=== PATIENT | male | born 1955 | race Caucasian/White ===

== ENCOUNTER 2017-12-01 10:34 | Inpatient (IN) | payer MEDICARE, OTHER ==
[2017-12-01] MEDS: SOD CHLORIDE 0.9% 1,000 ML IV (12:37)
[2017-12-01] MEDS: ONDANSETRON 4 MG INJ IV ×2 (12:37→14:16)
[2017-12-01] MEDS: HYDROmorphONE 0.5 MG/0.5 ML SYG IV ×3 (12:38→22:13)
[2017-12-01 12:43] LABS: ADD MAN DIFF? NO
[2017-12-01 12:45] LABS: ABNORMAL IP MESSAGE 1; BASOPHILS % 0.4 % (0.0-2.0); EOSINOPHILS # 0.1 10^3/ul (0.0-0.5); EOSINOPHILS % 0.4 % (0.0-7.0); HEMATOCRIT 48.7 % (42.0-52.0); HEMOGLOBIN 15.4 g/dl (14.0-18.0); LYMPHOCYTES # 0.5 10^3/ul (0.8-2.9); MEAN CORPUSCULAR HEMOGLOBIN 24.1 pg (29.0-33.0); MEAN CORPUSCULAR HGB CONC 31.6 g/dl (32.0-37.0); MEAN CORPUSCULAR VOLUME 76.2 fl (82.0-101.0); MEAN PLATELET VOLUME 10.2 fl (7.4-10.4); MONOCYTE # 0.7 10^3/ul (0.3-0.9); NEUTROPHIL # 10.1 10^3/ul (1.6-7.5); NEUTROPHILS % 88.5 % (39.0-77.0); PLATELET COUNT 503 10^3/UL (140-415); POSITIVE DIFF @See below; RED BLOOD COUNT 6.39 10^6/ul (4.70-6.10); RED CELL DISTRIBUTION WIDTH 20.5 % (11.5-14.5)
[2017-12-01 12:45] LABS: WHITE BLOOD COUNT 11.4 10^3/ul (4.8-10.8)
[2017-12-01 13:03] LABS: ANION GAP 21 (8-16); BLOOD UREA NITROGEN 32 mg/dl (7-20); CALCIUM 10.9 mg/dl (8.4-10.2); CARBON DIOXIDE 25 mmol/L (21-31); CHLORIDE 103 mmol/L (97-110); CREATININE 0.78 mg/dl (0.61-1.24); GLUCOSE 128 mg/dl (70-220); POTASSIUM 4.3 mmol/L (3.5-5.1); SODIUM 145 mmol/L (135-144)
[2017-12-01] MEDS ORDERED: ACETAMINOPHEN 325 MG TAB PO (13:30)
[2017-12-01] MEDS: SOD CHLORIDE 0.45% 1,000 ML IV (17:25)
[2017-12-01] MEDS ORDERED: DOXEPIN 50 MG CAP PO (21:00)
[2017-12-01] MEDS: DOXEPIN 25 MG CAP PO (22:20)
[2017-12-01] MEDS: DIVALPROEX (EC) 500 MG TAB PO (22:20)
[2017-12-01] MEDS: QUETIAPINE 100 MG TAB PO (22:20)
[2017-12-02 01:24] LABS: IRON 27 ug/dl (35-150)
[2017-12-02 01:28] LABS: URIC ACID 7.2 mg/dl (3.1-7.9)
[2017-12-02 01:36] LABS: % IRON SATURATION 11 % SAT (22-52); TOTAL IRON BINDING CAPACITY 247 ug/dl (241-421)
[2017-12-02 02:32] LABS: ERYTHROCYTE SEDIMENTATION RATE 35 mm/Hr (0-20)
[2017-12-02] MEDS: SOD CHLORIDE 0.45% 1,000 ML IV ×2 (05:47→10:16)
[2017-12-02] MEDS: HYDROmorphONE 0.5 MG/0.5 ML SYG IV (06:15)
[2017-12-02 07:07] LABS: ADD MAN DIFF? NO
[2017-12-02 07:16] LABS: ABNORMAL IP MESSAGE 1; BASOPHILS % 0.4 % (0.0-2.0); EOSINOPHILS # 0.1 10^3/ul (0.0-0.5); EOSINOPHILS % 1.5 % (0.0-7.0); HEMATOCRIT 35.7 % (42.0-52.0); HEMOGLOBIN 11.2 g/dl (14.0-18.0); LYMPHOCYTES # 0.4 10^3/ul (0.8-2.9); LYMPHOCYTES % 4.4 % (15.0-51.0); MEAN CORPUSCULAR HEMOGLOBIN 24.2 pg (29.0-33.0); MEAN CORPUSCULAR HGB CONC 31.4 g/dl (32.0-37.0); MEAN CORPUSCULAR VOLUME 77.1 fl (82.0-101.0); MONOCYTE # 0.8 10^3/ul (0.3-0.9); MONOCYTES % 10.5 % (0.0-11.0); NEUTROPHIL # 6.6 10^3/ul (1.6-7.5); NEUTROPHILS % 82.6 % (39.0-77.0); PLATELET COUNT 353 10^3/UL (140-415); POSITIVE DIFF @See below; RED BLOOD COUNT 4.63 10^6/ul (4.70-6.10); RED CELL DISTRIBUTION WIDTH 18.9 % (11.5-14.5)
[2017-12-02 07:44] LABS: TROPONIN-I < 0.012 ng/ml (0.00-0.12)
[2017-12-02 07:48] LABS: ANION GAP 15 (8-16); BLOOD UREA NITROGEN 25 mg/dl (7-20); CALCIUM 9.1 mg/dl (8.4-10.2); CARBON DIOXIDE 23 mmol/L (21-31); CHLORIDE 105 mmol/L (97-110); CREATININE 0.73 mg/dl (0.61-1.24); GLUCOSE 114 mg/dl (70-220); POTASSIUM 3.9 mmol/L (3.5-5.1); SODIUM 139 mmol/L (135-144)
[2017-12-02] MEDS: ALLOPURINOL 300 MG TAB PO (09:00)
[2017-12-02] MEDS: ATENOLOL 100 MG TAB PO (09:00)
[2017-12-02] MEDS ORDERED: OLANZAPINE 5 MG TAB PO (09:00)
[2017-12-02] MEDS: FLUOXETINE 20 MG CAP PO (09:00)
[2017-12-02] MEDS: PANTOPRAZOLE (EC) 40 MG TAB PO (09:00)
[2017-12-02] MEDS: DIVALPROEX (EC) 500 MG TAB PO ×2 (09:00→21:00)
[2017-12-02] MEDS: D5W-0.45 NACL + KCL 20 MEQ 1,000 ML IV (12:53)
[2017-12-02 15:15] LABS: TROPONIN-I < 0.012 ng/ml (0.00-0.12)
[2017-12-02 19:54] LABS: TROPONIN-I < 0.012 ng/ml (0.00-0.12)
[2017-12-02] MEDS: QUETIAPINE 100 MG TAB PO (21:00)
[2017-12-02] MEDS: DOXEPIN 25 MG CAP PO (21:00)
[2017-12-03] MEDS: D5W-0.45 NACL + KCL 20 MEQ 1,000 ML IV ×2 (01:25→14:41)
[2017-12-03 08:26] LABS: ADD MAN DIFF? NO
[2017-12-03 08:33] LABS: ABNORMAL IP MESSAGE 1; BASOPHILS % 0.6 % (0.0-2.0); EOSINOPHILS # 0.1 10^3/ul (0.0-0.5); EOSINOPHILS % 1.9 % (0.0-7.0); HEMATOCRIT 35.3 % (42.0-52.0); HEMOGLOBIN 11.1 g/dl (14.0-18.0); LYMPHOCYTES # 0.5 10^3/ul (0.8-2.9); LYMPHOCYTES % 7.7 % (15.0-51.0); MEAN CORPUSCULAR HEMOGLOBIN 24.1 pg (29.0-33.0); MEAN CORPUSCULAR HGB CONC 31.4 g/dl (32.0-37.0); MEAN CORPUSCULAR VOLUME 76.7 fl (82.0-101.0); MONOCYTE # 0.9 10^3/ul (0.3-0.9); MONOCYTES % 13.6 % (0.0-11.0); NEUTROPHIL # 4.7 10^3/ul (1.6-7.5); NEUTROPHILS % 75.7 % (39.0-77.0); PLATELET COUNT 332 10^3/UL (140-415); POSITIVE DIFF @See below; RED CELL DISTRIBUTION WIDTH 19.3 % (11.5-14.5)
[2017-12-03 08:33] LABS: WHITE BLOOD COUNT 6.3 10^3/ul (4.8-10.8)
[2017-12-03 08:51] LABS: ANION GAP 11 (8-16); BLOOD UREA NITROGEN 14 mg/dl (7-20); CARBON DIOXIDE 27 mmol/L (21-31); CHLORIDE 107 mmol/L (97-110); CREATININE 0.69 mg/dl (0.61-1.24); GLUCOSE 98 mg/dl (70-220); POTASSIUM 3.9 mmol/L (3.5-5.1); SODIUM 141 mmol/L (135-144)
[2017-12-03] MEDS: ALLOPURINOL 300 MG TAB PO (09:00)
[2017-12-03] MEDS: FLUOXETINE 20 MG CAP PO (09:00)
[2017-12-03] MEDS: DIVALPROEX (EC) 500 MG TAB PO ×2 (09:00→21:40)
[2017-12-03] MEDS: ATENOLOL 100 MG TAB PO (09:00)
[2017-12-03] MEDS: PANTOPRAZOLE (EC) 40 MG TAB PO (09:00)
[2017-12-03] MEDS ORDERED: DEXTROSE 5%-0.45% NACL 1,000 ML IV (14:30)
[2017-12-03] MEDS: MAGNESIUM HYDROXIDE 30ML CUP PO (16:44)
[2017-12-03] MEDS: HYDROmorphONE 0.5 MG/0.5 ML SYG IV (19:11)
[2017-12-03] MEDS: DOXEPIN 25 MG CAP PO (21:00)
[2017-12-03] MEDS: DOCUSATE SODIUM 100 MG CAP PO (21:39)
[2017-12-03] MEDS: QUETIAPINE 100 MG TAB PO (21:40)
[2017-12-03] MEDS: HYDROCODONE/APAP (5/325) TAB PO (23:28)
[2017-12-04] MEDS: D5W-0.45 NACL + KCL 20 MEQ 1,000 ML IV ×3 (02:36→19:14)
[2017-12-04] MEDS: HYDROCODONE/APAP (5/325) TAB PO (08:29)
[2017-12-04] MEDS: ALLOPURINOL 300 MG TAB PO (08:29)
[2017-12-04] MEDS: PANTOPRAZOLE (EC) 40 MG TAB PO (08:29)
[2017-12-04] MEDS: ATENOLOL 100 MG TAB PO (08:29)
[2017-12-04] MEDS: DIVALPROEX (EC) 500 MG TAB PO ×2 (08:30→21:12)
[2017-12-04] MEDS: FLUOXETINE 20 MG CAP PO (08:30)
[2017-12-04] MEDS: DOCUSATE SODIUM 100 MG CAP PO ×2 (08:30→21:12)
[2017-12-04 13:22] LABS: ADD MAN DIFF? NO
[2017-12-04 13:25] LABS: WHITE BLOOD COUNT 6.2 10^3/ul (4.8-10.8)
[2017-12-04 13:25] LABS: ABNORMAL IP MESSAGE 1; BASOPHILS % 0.6 % (0.0-2.0); EOSINOPHILS # 0.1 10^3/ul (0.0-0.5); EOSINOPHILS % 1.8 % (0.0-7.0); HEMATOCRIT 37.9 % (42.0-52.0); HEMOGLOBIN 11.8 g/dl (14.0-18.0); LYMPHOCYTES # 0.4 10^3/ul (0.8-2.9); LYMPHOCYTES % 6.1 % (15.0-51.0); MEAN CORPUSCULAR HEMOGLOBIN 24.4 pg (29.0-33.0); MEAN CORPUSCULAR HGB CONC 31.1 g/dl (32.0-37.0); MEAN CORPUSCULAR VOLUME 78.3 fl (82.0-101.0); MEAN PLATELET VOLUME 10.3 fl (7.4-10.4); MONOCYTE # 0.6 10^3/ul (0.3-0.9); MONOCYTES % 9.9 % (0.0-11.0); NEUTROPHILS % 81.3 % (39.0-77.0); PLATELET COUNT 330 10^3/UL (140-415); POSITIVE DIFF @See below; RED BLOOD COUNT 4.84 10^6/ul (4.70-6.10)
[2017-12-04 13:48] LABS: ANION GAP 17 (8-16); BLOOD UREA NITROGEN 13 mg/dl (7-20); CALCIUM 9.4 mg/dl (8.4-10.2); CARBON DIOXIDE 24 mmol/L (21-31); CHLORIDE 107 mmol/L (97-110); CREATININE 0.73 mg/dl (0.61-1.24); GLUCOSE 144 mg/dl (70-220); POTASSIUM 4.2 mmol/L (3.5-5.1); SODIUM 144 mmol/L (135-144)
[2017-12-04] MEDS: BISACODYL (EC) 5 MG TAB PO (15:25)
[2017-12-04] MEDS: DOXEPIN 25 MG CAP PO (21:00)
[2017-12-04] MEDS: QUETIAPINE 100 MG TAB PO (21:12)
[2017-12-05] MEDS: D5W-0.45 NACL + KCL 20 MEQ 1,000 ML IV ×2 (00:19→11:21)
[2017-12-05] MEDS: HYDROCODONE/APAP (5/325) TAB PO ×2 (06:08→12:20)
[2017-12-05] MEDS: ATENOLOL 100 MG TAB PO (08:09)
[2017-12-05] MEDS: HYDROmorphONE 0.5 MG/0.5 ML SYG IV ×2 (08:17→15:45)
[2017-12-05] MEDS: LACTULOSE 30ML CUP PO ×2 (08:19→14:14)
[2017-12-05] MEDS: PANTOPRAZOLE (EC) 40 MG TAB PO ×2 (08:19→14:14)
[2017-12-05] MEDS: ALLOPURINOL 300 MG TAB PO ×2 (08:19→14:14)
[2017-12-05] MEDS: DIVALPROEX (EC) 500 MG TAB PO ×3 (08:19→21:01)
[2017-12-05] MEDS: DOCUSATE SODIUM 100 MG CAP PO ×3 (08:19→21:06)
[2017-12-05] MEDS: FLUOXETINE 20 MG CAP PO ×2 (08:19→14:14)
[2017-12-05] MEDS: QUETIAPINE 100 MG TAB PO (21:01)
[2017-12-05] MEDS: DIAZEPAM 5 MG TAB PO (21:02)
[2017-12-05] MEDS: DOXEPIN 25 MG CAP PO (21:04)
[2017-12-06] MEDS: D5W-0.45 NACL + KCL 20 MEQ 1,000 ML IV ×3 (01:33→21:14)
[2017-12-06] MEDS: FLUOXETINE 20 MG CAP PO ×2 (09:00→10:42)
[2017-12-06] MEDS: DOCUSATE SODIUM 100 MG CAP PO ×3 (09:00→20:24)
[2017-12-06] MEDS: ATENOLOL 100 MG TAB PO (09:00)
[2017-12-06] MEDS: LACTULOSE 30ML CUP PO ×3 (09:00→20:27)
[2017-12-06] MEDS: HYDROCODONE/APAP (5/325) TAB PO ×2 (10:41→23:38)
[2017-12-06] MEDS: ALLOPURINOL 300 MG TAB PO (10:42)
[2017-12-06] MEDS: PANTOPRAZOLE (EC) 40 MG TAB PO (10:42)
[2017-12-06] MEDS: DIVALPROEX (EC) 500 MG TAB PO ×2 (10:42→20:25)
[2017-12-06] MEDS: DOXEPIN 25 MG CAP PO (20:24)
[2017-12-06] MEDS: QUETIAPINE 100 MG TAB PO (20:24)
[2017-12-06] MEDS: DIAZEPAM 5 MG TAB PO (20:25)
[2017-12-06] MEDS: HYDROmorphONE 0.5 MG/0.5 ML SYG IV (21:47)
[2017-12-07] MEDS: DIAZEPAM 5 MG TAB PO ×2 (01:52→20:23)
[2017-12-07] MEDS: HYDROmorphONE 0.5 MG/0.5 ML SYG IV ×2 (04:28→11:18)
[2017-12-07 05:16] LABS: ADD MAN DIFF? NO
[2017-12-07 05:27] LABS: ABNORMAL IP MESSAGE 1; BASOPHIL # 0.1 10^3/ul (0.0-0.1); BASOPHILS % 0.8 % (0.0-2.0); EOSINOPHILS # 0.1 10^3/ul (0.0-0.5); EOSINOPHILS % 1.8 % (0.0-7.0); HEMATOCRIT 33.1 % (42.0-52.0); HEMOGLOBIN 10.4 g/dl (14.0-18.0); LYMPHOCYTES # 0.5 10^3/ul (0.8-2.9); LYMPHOCYTES % 8.2 % (15.0-51.0); MEAN CORPUSCULAR HEMOGLOBIN 24.4 pg (29.0-33.0); MEAN CORPUSCULAR HGB CONC 31.4 g/dl (32.0-37.0); MEAN CORPUSCULAR VOLUME 77.7 fl (82.0-101.0); MEAN PLATELET VOLUME 10.8 fl (7.4-10.4); MONOCYTE # 0.8 10^3/ul (0.3-0.9); MONOCYTES % 13.3 % (0.0-11.0); NEUTROPHIL # 4.5 10^3/ul (1.6-7.5); NEUTROPHILS % 75.2 % (39.0-77.0); PLATELET COUNT 247 10^3/UL (140-415); POSITIVE DIFF @See below; RED BLOOD COUNT 4.26 10^6/ul (4.70-6.10); RED CELL DISTRIBUTION WIDTH 20.5 % (11.5-14.5)
[2017-12-07 05:37] LABS: ALANINE AMINOTRANSFERASE 21 IU/L (13-69); ALBUMIN 2.9 g/dl (3.3-4.9); ALBUMIN/GLOBULIN RATIO 1.11; ALKALINE PHOSPHATASE 81 IU/L (42-121); ANION GAP 13 (8-16); ASPARTATE AMINO TRANSFERASE 13 IU/L (15-46); BLOOD UREA NITROGEN 17 mg/dl (7-20); CARBON DIOXIDE 27 mmol/L (21-31); CHLORIDE 107 mmol/L (97-110); CREATININE 0.71 mg/dl (0.61-1.24); GLUCOSE 97 mg/dl (70-220); POTASSIUM 4.2 mmol/L (3.5-5.1); SODIUM 143 mmol/L (135-144); TOTAL PROTEIN 5.5 g/dl (6.1-8.1); URIC ACID 3.3 mg/dl (3.1-7.9)
[2017-12-07 05:59] LABS: ANION GAP 15 (8-16); BLOOD UREA NITROGEN 17 mg/dl (7-20); CALCIUM 9.1 mg/dl (8.4-10.2); CARBON DIOXIDE 25 mmol/L (21-31); CHLORIDE 108 mmol/L (97-110); CREATININE 0.67 mg/dl (0.61-1.24); GLUCOSE 92 mg/dl (70-220); POTASSIUM 4.6 mmol/L (3.5-5.1); SODIUM 143 mmol/L (135-144)
[2017-12-07] MEDS: D5W-0.45 NACL + KCL 20 MEQ 1,000 ML IV ×2 (06:32→19:15)
[2017-12-07] MEDS: FLUOXETINE 20 MG CAP PO (08:58)
[2017-12-07] MEDS: LACTULOSE 30ML CUP PO (08:58)
[2017-12-07] MEDS: PANTOPRAZOLE (EC) 40 MG TAB PO (08:58)
[2017-12-07] MEDS: DOCUSATE SODIUM 100 MG CAP PO ×2 (08:58→20:22)
[2017-12-07] MEDS: ATENOLOL 100 MG TAB PO (08:59)
[2017-12-07] MEDS: ALLOPURINOL 300 MG TAB PO (08:59)
[2017-12-07] MEDS: DIVALPROEX (EC) 500 MG TAB PO (08:59)
[2017-12-07] MEDS: HYDROCODONE/APAP (5/325) TAB PO (09:06)
[2017-12-07] MEDS: NA PHOSPHATE/BIPHOS 133 ML ENEMA PR (19:15)
[2017-12-07] MEDS: MIRTAZAPINE 15 MG TAB PO (20:22)
[2017-12-07] MEDS: QUETIAPINE 100 MG TAB PO (20:23)
[2017-12-08] MEDS: D5W-0.45 NACL + KCL 20 MEQ 1,000 ML IV ×4 (03:14→17:58)
[2017-12-08] MEDS: LACTULOSE 30ML CUP PO ×2 (09:00→09:36)
[2017-12-08] MEDS: HYDROCODONE/APAP (5/325) TAB PO ×2 (09:35→15:39)
[2017-12-08] MEDS: PANTOPRAZOLE (EC) 40 MG TAB PO (09:35)
[2017-12-08] MEDS: DOCUSATE SODIUM 100 MG CAP PO ×2 (09:35→21:07)
[2017-12-08] MEDS: ALLOPURINOL 300 MG TAB PO (09:35)
[2017-12-08] MEDS: SERTRALINE 50 MG TAB PO (09:35)
[2017-12-08] MEDS: ATENOLOL 100 MG TAB PO (09:36)
[2017-12-08] MEDS: QUETIAPINE 100 MG TAB PO (21:07)
[2017-12-08] MEDS: MIRTAZAPINE 15 MG TAB PO (21:07)
[2017-12-08] MEDS: DIAZEPAM 5 MG TAB PO (21:07)
[2017-12-09] MEDS: D5W-0.45 NACL + KCL 20 MEQ 1,000 ML IV ×3 (07:07→16:26)
[2017-12-09] MEDS: ALLOPURINOL 300 MG TAB PO (09:12)
[2017-12-09] MEDS: DOCUSATE SODIUM 100 MG CAP PO ×2 (09:12→21:00)
[2017-12-09] MEDS: PANTOPRAZOLE (EC) 40 MG TAB PO (09:13)
[2017-12-09] MEDS: ATENOLOL 100 MG TAB PO (09:13)
[2017-12-09] MEDS: SERTRALINE 50 MG TAB PO (09:13)
[2017-12-09] MEDS: LACTULOSE 30ML CUP PO ×2 (09:13→09:59)
[2017-12-09] MEDS: HYDROmorphONE 2 MG/ML SYG IV (14:58)
[2017-12-09] MEDS: MIRTAZAPINE 15 MG TAB PO (21:06)
[2017-12-09] MEDS: DIAZEPAM 5 MG TAB PO (21:06)
[2017-12-09] MEDS: QUETIAPINE 100 MG TAB PO (21:06)
[2017-12-09] MEDS: HYDROCODONE/APAP (5/325) TAB PO (22:33)
[2017-12-10] MEDS: D5W-0.45 NACL + KCL 20 MEQ 1,000 ML IV ×2 (02:45→16:08)
[2017-12-10] MEDS: ALLOPURINOL 300 MG TAB PO (08:48)
[2017-12-10] MEDS: SERTRALINE 50 MG TAB PO (08:48)
[2017-12-10] MEDS: PANTOPRAZOLE (EC) 40 MG TAB PO (08:49)
[2017-12-10] MEDS: DOCUSATE SODIUM 100 MG CAP PO ×2 (08:49→20:30)
[2017-12-10] MEDS: ATENOLOL 100 MG TAB PO (08:51)
[2017-12-10] MEDS: HYDROCODONE/APAP (5/325) TAB PO ×2 (08:56→22:38)
[2017-12-10] MEDS: MIRTAZAPINE 15 MG TAB PO (20:30)
[2017-12-10] MEDS: QUETIAPINE 100 MG TAB PO (20:30)
[2017-12-10] MEDS: HYDROmorphONE 2 MG/ML SYG IV (20:31)
[2017-12-10] MEDS: DIAZEPAM 5 MG TAB PO ×2 (21:12→21:24)
[2017-12-11] MEDS: D5W-0.45 NACL + KCL 20 MEQ 1,000 ML IV ×3 (00:44→21:34)
[2017-12-11] MEDS: HYDROmorphONE 2 MG/ML SYG IV ×6 (07:49→19:43)
[2017-12-11] MEDS: LACTULOSE 30ML CUP PO ×2 (09:00→10:28)
[2017-12-11] MEDS: PANTOPRAZOLE (EC) 40 MG TAB PO (10:28)
[2017-12-11] MEDS: DOCUSATE SODIUM 100 MG CAP PO ×2 (10:28→20:12)
[2017-12-11] MEDS: ATENOLOL 100 MG TAB PO (10:29)
[2017-12-11] MEDS: ALLOPURINOL 300 MG TAB PO (10:29)
[2017-12-11] MEDS: SERTRALINE 50 MG TAB PO (10:32)
[2017-12-11] MEDS: METHYLPREDNISOLONE 125 MG INJ IV (16:30)
[2017-12-11] MEDS ORDERED: METHYLPREDNISOLONE 125 MG INJ IV (17:30)
[2017-12-11] MEDS: ALBUTEROL/IPRATROPIUM (NEB) 3 ML AMP HHN ×2 (17:38→22:02)
[2017-12-11] MEDS: MIRTAZAPINE 15 MG TAB PO (20:12)
[2017-12-11] MEDS: QUETIAPINE 100 MG TAB PO (20:12)
[2017-12-11] MEDS: ENOXAPARIN 40 MG/0.4 ML SYG SC (20:15)
[2017-12-11] MEDS: HYDROCODONE/APAP (5/325) TAB PO (21:24)
[2017-12-11] MEDS: BISACODYL (EC) 5 MG TAB PO (21:24)
[2017-12-12] MEDS: HYDROCODONE/APAP (5/325) TAB PO ×3 (03:13→15:00)
[2017-12-12] MEDS: HYDROmorphONE 2 MG/ML SYG IV ×4 (04:08→17:06)
[2017-12-12] MEDS: D5W-0.45 NACL + KCL 20 MEQ 1,000 ML IV ×2 (06:25→16:34)
[2017-12-12] MEDS: DOCUSATE SODIUM 100 MG CAP PO ×2 (09:00→20:21)
[2017-12-12] MEDS: LACTULOSE 30ML CUP PO (09:00)
[2017-12-12] MEDS: PANTOPRAZOLE (EC) 40 MG TAB PO (09:11)
[2017-12-12] MEDS: ALLOPURINOL 300 MG TAB PO (09:11)
[2017-12-12] MEDS: SERTRALINE 50 MG TAB PO (09:11)
[2017-12-12] MEDS: ATENOLOL 25 MG TAB PO (09:11)
[2017-12-12] MEDS: ALBUTEROL/IPRATROPIUM (NEB) 3 ML AMP HHN ×3 (09:40→21:37)
[2017-12-12] MEDS: QUETIAPINE 100 MG TAB PO (20:20)
[2017-12-12] MEDS: DIAZEPAM 5 MG TAB PO (20:20)
[2017-12-12] MEDS: MIRTAZAPINE 15 MG TAB PO (20:20)
[2017-12-12] MEDS: ONDANSETRON 4 MG INJ IV (20:25)
[2017-12-12] MEDS: ENOXAPARIN 40 MG/0.4 ML SYG SC (20:25)
[2017-12-13] MEDS: PROCHLORPERAZINE 10 MG INJ IV (01:59)
[2017-12-13] MEDS: BISACODYL (EC) 5 MG TAB PO (01:59)
[2017-12-13] MEDS: D5W-0.45 NACL + KCL 20 MEQ 1,000 ML IV ×2 (03:28→13:47)
[2017-12-13] MEDS: HYDROmorphONE 2 MG/ML SYG IV ×3 (07:52→16:11)
[2017-12-13] MEDS: ALBUTEROL/IPRATROPIUM (NEB) 3 ML AMP HHN ×4 (08:00→21:24)
[2017-12-13] MEDS: DOCUSATE SODIUM 100 MG CAP PO ×2 (08:20→20:39)
[2017-12-13] MEDS: PANTOPRAZOLE (EC) 40 MG TAB PO (08:20)
[2017-12-13] MEDS: ALLOPURINOL 300 MG TAB PO (08:20)
[2017-12-13] MEDS: ATENOLOL 25 MG TAB PO (08:20)
[2017-12-13] MEDS: LACTULOSE 30ML CUP PO ×2 (08:20→08:23)
[2017-12-13] MEDS: SERTRALINE 50 MG TAB PO (08:20)
[2017-12-13] MEDS: ONDANSETRON 4 MG INJ IV (08:30)
[2017-12-13] MEDS: MIRTAZAPINE 15 MG TAB PO (20:39)
[2017-12-13] MEDS: DIAZEPAM 5 MG TAB PO (20:39)
[2017-12-13] MEDS: QUETIAPINE 100 MG TAB PO (20:39)
[2017-12-13] MEDS: ENOXAPARIN 40 MG/0.4 ML SYG SC (20:43)
[2017-12-13] MEDS: MAGNESIUM CITRATE 300 ML BTL PO (20:44)
[2017-12-13 21:01] LABS: ALANINE AMINOTRANSFERASE 29 IU/L (13-69); ALBUMIN 3.2 g/dl (3.3-4.9); ALBUMIN/GLOBULIN RATIO 1.06; ALKALINE PHOSPHATASE 113 IU/L (42-121); ANION GAP 16 (8-16); ASPARTATE AMINO TRANSFERASE 17 IU/L (15-46); BLOOD UREA NITROGEN 15 mg/dl (7-20); CALCIUM 9.3 mg/dl (8.4-10.2); CARBON DIOXIDE 29 mmol/L (21-31); CHLORIDE 99 mmol/L (97-110); CREATININE 0.82 mg/dl (0.61-1.24); GLUCOSE 113 mg/dl (70-220); POTASSIUM 4.5 mmol/L (3.5-5.1); SODIUM 139 mmol/L (135-144); TOTAL PROTEIN 6.2 g/dl (6.1-8.1)
[2017-12-14] MEDS: D5W-0.45 NACL + KCL 20 MEQ 1,000 ML IV ×3 (00:44→22:47)
[2017-12-14] MEDS: HYDROmorphONE 2 MG/ML SYG IV ×3 (03:21→15:57)
[2017-12-14] MEDS: ALLOPURINOL 300 MG TAB PO (08:13)
[2017-12-14] MEDS: DOCUSATE SODIUM 100 MG CAP PO (08:14)
[2017-12-14] MEDS: PANTOPRAZOLE (EC) 40 MG TAB PO (08:15)
[2017-12-14] MEDS: SERTRALINE 50 MG TAB PO (08:15)
[2017-12-14] MEDS: LACTULOSE 30ML CUP PO (08:15)
[2017-12-14] MEDS: ATENOLOL 25 MG TAB PO (08:15)
[2017-12-14] MEDS: ALBUTEROL/IPRATROPIUM (NEB) 3 ML AMP HHN ×3 (09:09→20:00)
[2017-12-14 11:23] LABS: ADD MAN DIFF? NO
[2017-12-14 11:25] LABS: WHITE BLOOD COUNT 7.9 10^3/ul (4.8-10.8)
[2017-12-14 11:25] LABS: BASOPHILS % 0.4 % (0.0-2.0); EOSINOPHILS # 0.2 10^3/ul (0.0-0.5); EOSINOPHILS % 1.9 % (0.0-7.0); HEMATOCRIT 31.5 % (42.0-52.0); HEMOGLOBIN 9.6 g/dl (14.0-18.0); LYMPHOCYTES # 0.7 10^3/ul (0.8-2.9); LYMPHOCYTES % 9.2 % (15.0-51.0); MEAN CORPUSCULAR HEMOGLOBIN 24.4 pg (29.0-33.0); MEAN CORPUSCULAR HGB CONC 30.5 g/dl (32.0-37.0); MEAN CORPUSCULAR VOLUME 80.2 fl (82.0-101.0); MEAN PLATELET VOLUME 10.6 fl (7.4-10.4); MONOCYTE # 1.1 10^3/ul (0.3-0.9); MONOCYTES % 13.5 % (0.0-11.0); NEUTROPHIL # 5.7 10^3/ul (1.6-7.5); NEUTROPHILS % 72.8 % (39.0-77.0); NUCLEATED RED BLOOD CELLS # 0.1 10^3/ul (0.0-0.0); PLATELET COUNT 237 10^3/UL (140-415); RED BLOOD COUNT 3.93 10^6/ul (4.70-6.10); RED CELL DISTRIBUTION WIDTH 20.7 % (11.5-14.5)
[2017-12-14] MEDS: METHADONE (1 MG/1 ML PO SYG) PO ×2 (14:43→22:29)
[2017-12-14] MEDS: QUETIAPINE 100 MG TAB PO (22:21)
[2017-12-14] MEDS: MIRTAZAPINE 15 MG TAB PO (22:22)
[2017-12-14] MEDS: SENNA/DOCUSATE NA (8.6MG/50MG) TAB PO (22:22)
[2017-12-14] MEDS: DIAZEPAM 5 MG TAB PO (22:22)
[2017-12-14] MEDS: ENOXAPARIN 40 MG/0.4 ML SYG SC (22:32)
[2017-12-15] MEDS: METHADONE (1 MG/1 ML PO SYG) PO ×2 (06:37→14:51)
[2017-12-15] MEDS: ALBUTEROL/IPRATROPIUM (NEB) 3 ML AMP HHN ×2 (07:51→14:38)
[2017-12-15] MEDS: PANTOPRAZOLE (EC) 40 MG TAB PO (08:57)
[2017-12-15] MEDS: SENNA/DOCUSATE NA (8.6MG/50MG) TAB PO ×2 (08:57→20:02)
[2017-12-15] MEDS: ATENOLOL 25 MG TAB PO (08:58)
[2017-12-15] MEDS: ALLOPURINOL 300 MG TAB PO (08:58)
[2017-12-15] MEDS: SERTRALINE 50 MG TAB PO (08:58)
[2017-12-15] MEDS: LACTULOSE 30ML CUP PO (09:00)
[2017-12-15] MEDS: HYDROmorphONE 2 MG/ML SYG IV (14:51)
[2017-12-15] MEDS: D5W-0.45 NACL + KCL 20 MEQ 1,000 ML IV (15:14)
[2017-12-15] MEDS ORDERED: ALBUTEROL/IPRATROPIUM (NEB) 3 ML AMP HHN (20:00)
[2017-12-15] MEDS: DIAZEPAM 5 MG TAB PO (20:01)
[2017-12-15] MEDS: MIRTAZAPINE 15 MG TAB PO (20:02)
[2017-12-15] MEDS: QUETIAPINE 100 MG TAB PO (20:02)
== END 2017-12-15 20:25 | DRG 840 ==
LOC: MS1 13:18 → E/R 10:34 → ICU 12-02 06:57 → TEL 12-02 12:05
DX: C85.90 Non-Hodgkin lymphoma, unspecified, unspecified site (principal); G92 Toxic encephalopathy; I50.32 Chronic diastolic (congestive) heart failure; C78.00 Secondary malignant neoplasm of unspecified lung; C79.51 Secondary malignant neoplasm of bone; E44.0 Moderate protein-calorie malnutrition; F32.9 Major depressive disorder, single episode, unspecified; F17.200 Nicotine dependence, unspecified, uncomplicated; F20.9 Schizophrenia, unspecified; F41.9 Anxiety disorder, unspecified; E83.52 Hypercalcemia; E78.5 Hyperlipidemia, unspecified; I11.0 Hypertensive heart disease with heart failure; K21.9 Gastro-esophageal reflux disease without esophagitis; T40.2X5A Adverse effect of other opioids, initial encounter; G89.29 Other chronic pain; R00.0 Tachycardia, unspecified; R07.9 Chest pain, unspecified; R62.7 Adult failure to thrive; R91.1 Solitary pulmonary nodule; R91.8 Other nonspecific abnormal finding of lung field; R53.83 Other fatigue; M54.5 Low back pain; R41.82 Altered mental status, unspecified; Y92.238 Other place in hospital as the place of occurrence of the external cause; Z59.0 Homelessness; Z91.14 Patient's other noncompliance with medication regimen; Z86.2 Personal history of diseases of the blood and blood-forming organs and certain disorders involving the immune mechanism
CPT/HCPCS: 36415; 71045; 74018; 74176; 80048; 80053; 82306; 82607; 82728; 82746; 82962; 83540; 84443; 84484; 84560; 85025; 85651; 87081; 93005; 93306; 94640; 94664; 96374; 96375; 96376; 97110; 97116; 97161; 97530; 99285-25

== ENCOUNTER 2017-12-19 00:06 | Inpatient (IN) | payer MEDICARE, OTHER ==
[2017-12-19 00:38] LABS: URINE BLOOD (Dip) POC Trace-intact (NEGATIVE); URINE GLUCOSE (Dip) POC Negative (NEGATIVE); URINE KETONES (Dip) POC Negative (NEGATIVE); URINE LEUKOCYTE EST (Dip) POC Negative (NEGATIVE); URINE NITRITE (Dip) POC Negative (NEGATIVE); URINE TOTAL PROTEIN POC Negative (NEGATIVE)
[2017-12-19] MEDS: SODIUM CHLORIDE 0.9% 1L BAG IV* (00:41)
[2017-12-19] MEDS: PIPER-TAZO 3.375 GM IV (PMX) 100 ML IVPB ×4 (00:41→20:22)
[2017-12-19 00:57] LABS: ADD MAN DIFF? NO
[2017-12-19 00:59] LABS: ABNORMAL IP MESSAGE 1; ADD UMIC NO; BASOPHILS % 0.3 % (0.0-2.0); EOSINOPHILS # 0.3 10^3/ul (0.0-0.5); HEMATOCRIT 30.2 % (42.0-52.0); HEMOGLOBIN 9.8 g/dl (14.0-18.0); LYMPHOCYTES # 0.6 10^3/ul (0.8-2.9); LYMPHOCYTES % 6.4 % (15.0-51.0); MEAN CORPUSCULAR HEMOGLOBIN 24.4 pg (29.0-33.0); MEAN CORPUSCULAR HGB CONC 32.5 g/dl (32.0-37.0); MEAN CORPUSCULAR VOLUME 75.1 fl (82.0-101.0); MEAN PLATELET VOLUME 10.5 fl (7.4-10.4); MONOCYTE # 1.1 10^3/ul (0.3-0.9); MONOCYTES % 11.9 % (0.0-11.0); NEUTROPHIL # 6.9 10^3/ul (1.6-7.5); NEUTROPHILS % 75.9 % (39.0-77.0); PLATELET COUNT 251 10^3/UL (140-415); POSITIVE DIFF @See below; RED BLOOD COUNT 4.02 10^6/ul (4.70-6.10); RED CELL DISTRIBUTION WIDTH 20.1 % (11.5-14.5); UR ASCORBIC ACID NEGATIVE (NEGATIVE); UR BILIRUBIN (Dip) NEGATIVE (NEGATIVE); UR BLOOD (Dip) NEGATIVE (NEGATIVE); UR CLARITY CLEAR (CLEAR); UR COLOR STRAW (YELLOW); UR GLUCOSE (Dip) NEGATIVE (NEGATIVE); UR KETONES (Dip) NEGATIVE (NEGATIVE); UR LEUKOCYTE ESTERASE (Dip) NEGATIVE Leu/ul (NEGATIVE); UR NITRITE (Dip) NEGATIVE (NEGATIVE); UR SPECIFIC GRAVITY (Dip) 1.004 (1.003-1.030); UR TOTAL PROTEIN (Dip) NEGATIVE (NEGATIVE); UR UROBILINOGEN (Dip) NEGATIVE (NEGATIVE)
[2017-12-19 00:59] LABS: WHITE BLOOD COUNT 9.1 10^3/ul (4.8-10.8)
[2017-12-19 01:18] LABS: INR 1.09; PROTIME 14.3 Sec (11.9-14.9); PT RATIO 1.1
[2017-12-19 01:19] LABS: PARTIAL THROMBOPLASTIN TIME 32.7 Sec (25.0-35.0)
[2017-12-19 01:33] LABS: LACTIC ACID 1.9 mmol/L (0.5-2.0)
[2017-12-19 01:35] LABS: ALANINE AMINOTRANSFERASE 29 IU/L (13-69); ALBUMIN 3.1 g/dl (3.3-4.9); ALKALINE PHOSPHATASE 101 IU/L (42-121); ANION GAP 13 (8-16); ASPARTATE AMINO TRANSFERASE 18 IU/L (15-46); BLOOD UREA NITROGEN 14 mg/dl (7-20); CARBON DIOXIDE 25 mmol/L (21-31); CHLORIDE 102 mmol/L (97-110); CREATININE 0.78 mg/dl (0.61-1.24); GLUCOSE 134 mg/dl (70-220); SODIUM 136 mmol/L (135-144); TOTAL PROTEIN 6.2 g/dl (6.1-8.1)
[2017-12-19 01:44] LABS: TROPONIN-I 0.018 ng/ml (0.00-0.12)
[2017-12-19] MEDS ORDERED: ONDANSETRON 4 MG INJ IV (06:00)
[2017-12-19] MEDS ORDERED: VANCOMYCIN IV PER PHARMACY XX (12:30)
[2017-12-19] MEDS: LIDOCAINE 1% (MPF) 5 ML VIAL SC (15:30)
[2017-12-19] MEDS: VANCOMYCIN 2 GM in SOD CHLORIDE 0.9% 500 ML IVPB (17:10)
[2017-12-19 18:34] LABS: LACTIC ACID 1.3 mmol/L (0.5-2.0)
[2017-12-19] MEDS: METOPROLOL 5 MG INJ IV (18:51)
[2017-12-19] MEDS: ATENOLOL 25 MG TAB PO (20:46)
[2017-12-19] MEDS: SOD CHLORIDE 0.9% 250 ML IV (22:29)
[2017-12-20] MEDS: PIPER-TAZO 3.375 GM IV (PMX) 100 ML IVPB ×4 (00:14→19:25)
[2017-12-20] MEDS ORDERED: VANCOMYCIN 1.5 GM in SOD CHLORIDE 0.9% 250 ML IVPB (01:00)
[2017-12-20] MEDS: VANCOMYCIN 1.5 GM in SOD CHLORIDE 0.9% 250 ML IVPB ×2 (06:00→19:05)
[2017-12-20 07:07] LABS: ADD MAN DIFF? NO
[2017-12-20 07:13] LABS: WHITE BLOOD COUNT 11.5 10^3/ul (4.8-10.8)
[2017-12-20 07:13] LABS: BASOPHIL # 0.1 10^3/ul (0.0-0.1); BASOPHILS % 0.5 % (0.0-2.0); EOSINOPHILS # 0.2 10^3/ul (0.0-0.5); EOSINOPHILS % 2.1 % (0.0-7.0); HEMOGLOBIN 9.6 g/dl (14.0-18.0); LYMPHOCYTES # 0.8 10^3/ul (0.8-2.9); LYMPHOCYTES % 6.5 % (15.0-51.0); MEAN CORPUSCULAR HEMOGLOBIN 23.8 pg (29.0-33.0); MEAN CORPUSCULAR VOLUME 76.9 fl (82.0-101.0); MEAN PLATELET VOLUME 10.4 fl (7.4-10.4); MONOCYTE # 1.4 10^3/ul (0.3-0.9); MONOCYTES % 12.1 % (0.0-11.0); NEUTROPHIL # 8.8 10^3/ul (1.6-7.5); NEUTROPHILS % 76.2 % (39.0-77.0); NUCLEATED RED BLOOD CELLS% 0.2 /100WBC (0.0-0.0); PLATELET COUNT 254 10^3/UL (140-415); RED BLOOD COUNT 4.03 10^6/ul (4.70-6.10); RED CELL DISTRIBUTION WIDTH 20.1 % (11.5-14.5)
[2017-12-20 07:35] LABS: ANION GAP 16 (8-16); BLOOD UREA NITROGEN 11 mg/dl (7-20); CALCIUM 9.4 mg/dl (8.4-10.2); CARBON DIOXIDE 26 mmol/L (21-31); CHLORIDE 102 mmol/L (97-110); GLUCOSE 100 mg/dl (70-220); POTASSIUM 3.6 mmol/L (3.5-5.1); SODIUM 140 mmol/L (135-144)
[2017-12-20] MEDS: ATENOLOL 25 MG TAB PO ×2 (09:00→22:30)
[2017-12-20] MEDS: ACETAMINOPHEN 325 MG TAB PO (22:29)
[2017-12-21] MEDS: PIPER-TAZO 3.375 GM IV (PMX) 100 ML IVPB ×5 (00:31→23:40)
[2017-12-21] MEDS: morphine 2 MG INJ IV (04:08)
[2017-12-21 05:49] LABS: ADD MAN DIFF? NO
[2017-12-21 05:52] LABS: ABNORMAL IP MESSAGE 1; BASOPHIL # 0.1 10^3/ul (0.0-0.1); BASOPHILS % 0.5 % (0.0-2.0); EOSINOPHILS # 0.2 10^3/ul (0.0-0.5); EOSINOPHILS % 2.6 % (0.0-7.0); HEMATOCRIT 29.2 % (42.0-52.0); HEMOGLOBIN 8.9 g/dl (14.0-18.0); LYMPHOCYTES # 0.4 10^3/ul (0.8-2.9); LYMPHOCYTES % 4.4 % (15.0-51.0); MEAN CORPUSCULAR HEMOGLOBIN 23.7 pg (29.0-33.0); MEAN CORPUSCULAR HGB CONC 30.5 g/dl (32.0-37.0); MEAN CORPUSCULAR VOLUME 77.9 fl (82.0-101.0); MEAN PLATELET VOLUME 10.1 fl (7.4-10.4); MONOCYTE # 1.2 10^3/ul (0.3-0.9); NEUTROPHIL # 7.3 10^3/ul (1.6-7.5); NEUTROPHILS % 77.8 % (39.0-77.0); PLATELET COUNT 219 10^3/UL (140-415); POSITIVE DIFF @See below; RED BLOOD COUNT 3.75 10^6/ul (4.70-6.10); RED CELL DISTRIBUTION WIDTH 20.3 % (11.5-14.5)
[2017-12-21 05:52] LABS: WHITE BLOOD COUNT 9.4 10^3/ul (4.8-10.8)
[2017-12-21 06:25] LABS: VANCOMYCIN,TROUGH 9.5 ug/ml (10.0-20.0)
[2017-12-21 06:28] LABS: ANION GAP 13 (8-16); BLOOD UREA NITROGEN 11 mg/dl (7-20); CARBON DIOXIDE 27 mmol/L (21-31); CHLORIDE 104 mmol/L (97-110); GLUCOSE 104 mg/dl (70-220); SODIUM 140 mmol/L (135-144)
[2017-12-21] MEDS: VANCOMYCIN 1.5 GM in SOD CHLORIDE 0.9% 250 ML IVPB (07:07)
[2017-12-21] MEDS: ATENOLOL 25 MG TAB PO ×2 (09:00→21:13)
[2017-12-21] MEDS: VANCOMYCIN 1.75 GM in SOD CHLORIDE 0.9% 500 ML IVPB (18:35)
[2017-12-21] MEDS: ACETAMINOPHEN 325 MG TAB PO (21:07)
[2017-12-21] MEDS: MIRTAZAPINE 15 MG TAB PO (22:30)
[2017-12-21] MEDS: QUETIAPINE 100 MG TAB PO (23:40)
[2017-12-22] MEDS: PIPER-TAZO 3.375 GM IV (PMX) 100 ML IVPB ×4 (05:49→23:11)
[2017-12-22] MEDS: ATENOLOL 25 MG TAB PO ×2 (08:54→23:12)
[2017-12-22] MEDS: SERTRALINE 50 MG TAB PO (08:54)
[2017-12-22] MEDS: LIDOCAINE 1% (MPF) 5 ML VIAL SC ×2 (09:30→23:15)
[2017-12-22] MEDS: DEXTROSE 5%-0.45% NACL 1,000 ML IV ×2 (13:36→23:12)
[2017-12-22 14:00] LABS: ADD MAN DIFF? NO
[2017-12-22 14:02] LABS: WHITE BLOOD COUNT 9.1 10^3/ul (4.8-10.8)
[2017-12-22 14:02] LABS: ABNORMAL IP MESSAGE 1; BASOPHILS % 0.3 % (0.0-2.0); EOSINOPHILS # 0.3 10^3/ul (0.0-0.5); EOSINOPHILS % 2.9 % (0.0-7.0); HEMATOCRIT 29.5 % (42.0-52.0); HEMOGLOBIN 9.1 g/dl (14.0-18.0); LYMPHOCYTES # 0.5 10^3/ul (0.8-2.9); MEAN CORPUSCULAR HEMOGLOBIN 23.8 pg (29.0-33.0); MEAN CORPUSCULAR HGB CONC 30.8 g/dl (32.0-37.0); MEAN CORPUSCULAR VOLUME 77.2 fl (82.0-101.0); MEAN PLATELET VOLUME 10.1 fl (7.4-10.4); MONOCYTES % 11.1 % (0.0-11.0); NEUTROPHIL # 7.3 10^3/ul (1.6-7.5); NEUTROPHILS % 79.6 % (39.0-77.0); PLATELET COUNT 291 10^3/UL (140-415); POSITIVE DIFF @See below; RED BLOOD COUNT 3.82 10^6/ul (4.70-6.10)
[2017-12-22 14:20] LABS: ANION GAP 15 (8-16)
[2017-12-22 14:23] LABS: BLOOD UREA NITROGEN 11 mg/dl (7-20); CALCIUM 9.5 mg/dl (8.4-10.2); CARBON DIOXIDE 28 mmol/L (21-31); CHLORIDE 100 mmol/L (97-110); CREATININE 0.73 mg/dl (0.61-1.24); GLUCOSE 135 mg/dl (70-220); SODIUM 139 mmol/L (135-144)
[2017-12-22] MEDS ORDERED: ALBUTEROL/IPRATROPIUM (NEB) 3 ML AMP HHN (19:00)
[2017-12-22] MEDS ORDERED: QUETIAPINE 100 MG TAB PO (21:00)
[2017-12-22] MEDS ORDERED: MIRTAZAPINE 15 MG TAB PO (21:00)
[2017-12-22 21:04] LABS: LACTATE DEHYDROGENASE 444 IU/L (313-618)
[2017-12-22] MEDS: ACETAMINOPHEN 325 MG TAB PO (23:12)
[2017-12-22] MEDS: QUETIAPINE 100 MG TAB PO (23:12)
[2017-12-22] MEDS: MIRTAZAPINE 15 MG TAB PO (23:12)
[2017-12-22] MEDS: ATORVASTATIN 40 MG TAB PO (23:12)
[2017-12-23 05:48] LABS: ADD UMIC NO; UR ASCORBIC ACID NEGATIVE (NEGATIVE); UR BILIRUBIN (Dip) NEGATIVE (NEGATIVE); UR BLOOD (Dip) NEGATIVE (NEGATIVE); UR CLARITY CLEAR (CLEAR); UR COLOR STRAW (YELLOW); UR GLUCOSE (Dip) NEGATIVE (NEGATIVE); UR KETONES (Dip) NEGATIVE (NEGATIVE); UR LEUKOCYTE ESTERASE (Dip) NEGATIVE Leu/ul (NEGATIVE); UR NITRITE (Dip) NEGATIVE (NEGATIVE); UR SPECIFIC GRAVITY (Dip) 1.008 (1.003-1.030); UR TOTAL PROTEIN (Dip) NEGATIVE (NEGATIVE); UR UROBILINOGEN (Dip) NEGATIVE (NEGATIVE)
[2017-12-23] MEDS: PIPER-TAZO 3.375 GM IV (PMX) 100 ML IVPB ×4 (06:02→23:40)
[2017-12-23 08:44] LABS: ADD MAN DIFF? NO
[2017-12-23 08:49] LABS: WHITE BLOOD COUNT 8.5 10^3/ul (4.8-10.8)
[2017-12-23 08:49] LABS: ABNORMAL IP MESSAGE 1; BASOPHIL # 0.1 10^3/ul (0.0-0.1); BASOPHILS % 0.6 % (0.0-2.0); EOSINOPHILS # 0.2 10^3/ul (0.0-0.5); EOSINOPHILS % 2.6 % (0.0-7.0); HEMATOCRIT 26.9 % (42.0-52.0); HEMOGLOBIN 8.4 g/dl (14.0-18.0); LYMPHOCYTES # 0.5 10^3/ul (0.8-2.9); LYMPHOCYTES % 5.7 % (15.0-51.0); MEAN CORPUSCULAR HEMOGLOBIN 24.3 pg (29.0-33.0); MEAN CORPUSCULAR HGB CONC 31.2 g/dl (32.0-37.0); MEAN CORPUSCULAR VOLUME 77.7 fl (82.0-101.0); MEAN PLATELET VOLUME 9.8 fl (7.4-10.4); MONOCYTE # 0.9 10^3/ul (0.3-0.9); MONOCYTES % 10.9 % (0.0-11.0); NEUTROPHIL # 6.7 10^3/ul (1.6-7.5); NEUTROPHILS % 79.3 % (39.0-77.0); PLATELET COUNT 266 10^3/UL (140-415); POSITIVE DIFF @See below; RED BLOOD COUNT 3.46 10^6/ul (4.70-6.10)
[2017-12-23] MEDS: ATENOLOL 25 MG TAB PO ×2 (09:00→21:22)
[2017-12-23] MEDS: SERTRALINE 50 MG TAB PO (09:13)
[2017-12-23 09:20] LABS: ANION GAP 14 (8-16); BLOOD UREA NITROGEN 11 mg/dl (7-20); CALCIUM 9.2 mg/dl (8.4-10.2); CARBON DIOXIDE 27 mmol/L (21-31); CHLORIDE 102 mmol/L (97-110); CREATININE 0.79 mg/dl (0.61-1.24); GLUCOSE 106 mg/dl (70-220); POTASSIUM 3.8 mmol/L (3.5-5.1); SODIUM 139 mmol/L (135-144)
[2017-12-23 09:53] LABS: LACTIC ACID 1.6 mmol/L (0.5-2.0)
[2017-12-23] MEDS: DEXTROSE 5%-0.45% NACL 1,000 ML IV ×2 (12:10→23:40)
[2017-12-23] MEDS ORDERED: LEVALBUTEROL (NEB) 0.63 MG/3 ML AMP HHN (17:30)
[2017-12-23] MEDS: QUETIAPINE 100 MG TAB PO (20:16)
[2017-12-23] MEDS: ATORVASTATIN 40 MG TAB PO (20:16)
[2017-12-23] MEDS: MIRTAZAPINE 15 MG TAB PO (20:17)
[2017-12-23] MEDS: ACETAMINOPHEN 325 MG TAB PO (21:21)
[2017-12-24] MEDS: PIPER-TAZO 3.375 GM IV (PMX) 100 ML IVPB ×3 (05:42→17:40)
[2017-12-24] MEDS: ATENOLOL 25 MG TAB PO ×2 (08:58→20:18)
[2017-12-24] MEDS: SERTRALINE 50 MG TAB PO (09:02)
[2017-12-24] MEDS ORDERED: BISACODYL (EC) 5 MG TAB PO (13:00)
[2017-12-24] MEDS: DEXTROSE 5%-0.45% NACL 1,000 ML IV (17:40)
[2017-12-24] MEDS: ATORVASTATIN 40 MG TAB PO (20:16)
[2017-12-24] MEDS: MIRTAZAPINE 15 MG TAB PO (20:16)
[2017-12-24] MEDS: QUETIAPINE 100 MG TAB PO (20:16)
[2017-12-24] MEDS: DOCUSATE SODIUM 100 MG CAP PO (20:16)
[2017-12-25 05:30] LABS: ADD MAN DIFF? NO
[2017-12-25 05:34] LABS: ABNORMAL IP MESSAGE 1; BASOPHIL # 0.1 10^3/ul (0.0-0.1); BASOPHILS % 0.5 % (0.0-2.0); EOSINOPHILS # 0.2 10^3/ul (0.0-0.5); EOSINOPHILS % 1.4 % (0.0-7.0); HEMATOCRIT 27.1 % (42.0-52.0); HEMOGLOBIN 8.3 g/dl (14.0-18.0); LYMPHOCYTES # 0.5 10^3/ul (0.8-2.9); LYMPHOCYTES % 4.6 % (15.0-51.0); MEAN CORPUSCULAR HEMOGLOBIN 23.9 pg (29.0-33.0); MEAN CORPUSCULAR HGB CONC 30.6 g/dl (32.0-37.0); MEAN CORPUSCULAR VOLUME 78.1 fl (82.0-101.0); MEAN PLATELET VOLUME 10.2 fl (7.4-10.4); MONOCYTE # 1.2 10^3/ul (0.3-0.9); MONOCYTES % 11.1 % (0.0-11.0); NEUTROPHILS % 81.4 % (39.0-77.0); PLATELET COUNT 336 10^3/UL (140-415); POSITIVE DIFF @See below; RED BLOOD COUNT 3.47 10^6/ul (4.70-6.10)
[2017-12-25 05:52] LABS: ANION GAP 11 (8-16); BLOOD UREA NITROGEN 10 mg/dl (7-20); CALCIUM 9.5 mg/dl (8.4-10.2); CARBON DIOXIDE 30 mmol/L (21-31); CHLORIDE 104 mmol/L (97-110); CREATININE 0.78 mg/dl (0.61-1.24); GLUCOSE 102 mg/dl (70-220); POTASSIUM 3.8 mmol/L (3.5-5.1); SODIUM 141 mmol/L (135-144)
[2017-12-25] MEDS: ATENOLOL 25 MG TAB PO ×3 (09:00→23:46)
[2017-12-25] MEDS: SERTRALINE 50 MG TAB PO (09:14)
[2017-12-25] MEDS: DOCUSATE SODIUM 100 MG CAP PO ×2 (09:14→21:24)
[2017-12-25] MEDS: DEXTROSE 5%-0.45% NACL 1,000 ML IV (09:16)
[2017-12-25 13:12] LABS: PROCALCITONIN <0.10 ng/mL (<0.10)
[2017-12-25] MEDS: MIRTAZAPINE 15 MG TAB PO (21:24)
[2017-12-25] MEDS: ATORVASTATIN 40 MG TAB PO (21:25)
[2017-12-25] MEDS: QUETIAPINE 100 MG TAB PO (21:25)
[2017-12-25] MEDS: ACETAMINOPHEN 325 MG TAB PO (23:46)
[2017-12-26] MEDS: DEXTROSE 5%-0.45% NACL 1,000 ML IV ×2 (00:48→14:49)
[2017-12-26] MEDS: SERTRALINE 50 MG TAB PO (09:00)
[2017-12-26] MEDS: ATENOLOL 25 MG TAB PO ×2 (09:00→21:21)
[2017-12-26] MEDS: DOCUSATE SODIUM 100 MG CAP PO ×2 (09:26→21:19)
[2017-12-26] MEDS: ATORVASTATIN 40 MG TAB PO (21:19)
[2017-12-26] MEDS: QUETIAPINE 100 MG TAB PO (21:20)
[2017-12-26] MEDS: ACETAMINOPHEN 325 MG TAB PO (21:20)
[2017-12-26] MEDS: MIRTAZAPINE 15 MG TAB PO (21:20)
[2017-12-27] MEDS: DEXTROSE 5%-0.45% NACL 1,000 ML IV ×3 (03:59→23:00)
[2017-12-27] MEDS: ATENOLOL 25 MG TAB PO ×2 (09:00→21:49)
[2017-12-27] MEDS: SERTRALINE 50 MG TAB PO (09:26)
[2017-12-27] MEDS: DOCUSATE SODIUM 100 MG CAP PO ×2 (09:26→21:48)
[2017-12-27] MEDS ORDERED: ALTEPLASE (CATHFLO) 2 MG INJ CATHETER (12:30)
[2017-12-27] MEDS: ALTEPLASE (CATHFLO) 2 MG INJ CATHETER (13:34)
[2017-12-27 14:49] LABS: ADD MAN DIFF? NO
[2017-12-27 14:52] LABS: WHITE BLOOD COUNT 9.9 10^3/ul (4.8-10.8)
[2017-12-27 14:52] LABS: ABNORMAL IP MESSAGE 1; BASOPHIL # 0.1 10^3/ul (0.0-0.1); BASOPHILS % 0.7 % (0.0-2.0); EOSINOPHILS # 0.3 10^3/ul (0.0-0.5); HEMATOCRIT 31.4 % (42.0-52.0); HEMOGLOBIN 9.4 g/dl (14.0-18.0); LYMPHOCYTES # 0.6 10^3/ul (0.8-2.9); LYMPHOCYTES % 5.8 % (15.0-51.0); MEAN CORPUSCULAR HEMOGLOBIN 23.4 pg (29.0-33.0); MEAN CORPUSCULAR HGB CONC 29.9 g/dl (32.0-37.0); MEAN CORPUSCULAR VOLUME 78.3 fl (82.0-101.0); MEAN PLATELET VOLUME 9.8 fl (7.4-10.4); NEUTROPHIL # 7.8 10^3/ul (1.6-7.5); NEUTROPHILS % 79.6 % (39.0-77.0); PLATELET COUNT 387 10^3/UL (140-415); POSITIVE DIFF @See below; RED BLOOD COUNT 4.01 10^6/ul (4.70-6.10); RED CELL DISTRIBUTION WIDTH 19.7 % (11.5-14.5)
[2017-12-27 15:16] LABS: ANION GAP 14 (8-16); BLOOD UREA NITROGEN 11 mg/dl (7-20); CARBON DIOXIDE 28 mmol/L (21-31); CHLORIDE 102 mmol/L (97-110); CREATININE 0.73 mg/dl (0.61-1.24); GLUCOSE 91 mg/dl (70-220); POTASSIUM 3.9 mmol/L (3.5-5.1); SODIUM 140 mmol/L (135-144)
[2017-12-27] MEDS: ACETAMINOPHEN 325 MG TAB PO (21:48)
[2017-12-27] MEDS: QUETIAPINE 100 MG TAB PO (21:48)
[2017-12-27] MEDS: MIRTAZAPINE 15 MG TAB PO (21:48)
[2017-12-27] MEDS: ATORVASTATIN 40 MG TAB PO (21:48)
[2017-12-28] MEDS: ATENOLOL 25 MG TAB PO (08:17)
[2017-12-28] MEDS: DOCUSATE SODIUM 100 MG CAP PO (08:18)
[2017-12-28] MEDS: SERTRALINE 50 MG TAB PO (08:18)
[2017-12-28] MEDS: DEXTROSE 5%-0.45% NACL 1,000 ML IV (08:20)
[2017-12-28] MEDS: DIGOXIN 500 MCG INJ IV (17:34)
== END 2017-12-28 20:07 | DRG 194 ==
LOC: MS4 12-26 00:45 → E/R 00:06 → PP2 12-23 23:12 → MS4 03:38
PROC: 02HV33Z Insertion of Infusion Device into Superior Vena Cava, Percutaneous Approach (ICD-10-PCS; principal; 2017-12-19)
PROC: B548ZZA Ultrasonography of Superior Vena Cava, Guidance (ICD-10-PCS; 2017-12-19)
PROC: 02HV33Z Insertion of Infusion Device into Superior Vena Cava, Percutaneous Approach (ICD-10-PCS; 2017-12-22)
PROC: B548ZZA Ultrasonography of Superior Vena Cava, Guidance (ICD-10-PCS; 2017-12-22)
PROC: CW1 Nuclear Medicine, Anatomical Regions, Planar Nuclear Medicine Imaging (ICD-10-PCS; 2017-12-26)
DX: J18.8 Other pneumonia, unspecified organism (principal); C78.01 Secondary malignant neoplasm of right lung; I50.30 Unspecified diastolic (congestive) heart failure; C81.90 Hodgkin lymphoma, unspecified, unspecified site; I80.8 Phlebitis and thrombophlebitis of other sites; Z87.891 Personal history of nicotine dependence; D64.9 Anemia, unspecified; F32.9 Major depressive disorder, single episode, unspecified; I10 Essential (primary) hypertension; M10.9 Gout, unspecified; Z91.14 Patient's other noncompliance with medication regimen; F20.9 Schizophrenia, unspecified; E83.52 Hypercalcemia; F41.9 Anxiety disorder, unspecified; E78.5 Hyperlipidemia, unspecified; Z59.0 Homelessness; J44.9 Chronic obstructive pulmonary disease, unspecified; Z92.21 Personal history of antineoplastic chemotherapy
CPT/HCPCS: 36415; 36569; 71045; 71250; 74018; 76937; 78806; 80048; 80053; 80202; 81003; 82962; 83605; 83615; 84145; 84443; 84484; 85025; 85610; 85730; 87040; 87081; 87086; 87400; 93005; 93971; 96374; 99285-25